=== PATIENT | male | born 1985 | race Caucasian/White ===

== ENCOUNTER 2017-01-31 08:57 | Emergency (ER) | payer MEDICARE | END 2017-01-31 11:00 | disposition home or self-care (01) | LOC: ER 08:57 | DX: N13.2 Hydronephrosis with renal and ureteral calculous obstruction (principal); F41.9 Anxiety disorder, unspecified; Z79.899 Other long term (current) drug therapy | CPT/HCPCS: 36415; 96361; 96374; 96375; J1885; J2550 ==